=== PATIENT | male | born 1960 | race Caucasian/White ===

== ENCOUNTER 2017-04-04 18:33 | Observation (INO) ==
[2017-04-04] MEDS ORDERED: Aspirin 81 MG TAB.CHEW PO ONE (18:45)
--- NOTE | 2017-04-04 18:48 | Emergency Department Note ---
Disposition Clinical Impression: Chest pain Qualifiers: Chest pain type: unspecified Qualified Code(s): R07.9 - Chest pain, unspecified Disposition: Admitted As Inpatient Condition: Good Referrals: Dalton Souza MD [Primary Care Provider] - Forms: ED Satisfaction Letter Chest Pain HPI - General Chief Complaint: ED Chest Pain Stated Complaint: chest pain Time Seen by Provider: 04/04/17 18:46 Source: patient Mode of arrival: private vehicle Limitations: no limitations Vital Signs Reviewed: Yes Nursing Notes Reviewed: Yes - History of Present Illness HPI Narrative: 57-year-old male history of hypertension, hyperlipidemia, COPD who presents to the ER with a chief complaint of chest pain. Patient reports he started having chest pain around 45 minutes prior to arrival. States it feels like pressure and a sharp sensation in the center of his chest with radiation into his left arm and left jaw. Reports he had a left heart catheterization roughly 3-4 years ago without stent placement. He took aspirin and one nitroglycerin prior to arrival with some improvement of his pain. He reports he felt dizzy during this time as well. No history of sudden cardiac or early CA in his family. No history of DVT or PE. Denies any recent illness, fever, cough, sore throat, vomiting, diarrhea. No other complaints. 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 Denies: nausea, vomiting, diaphoresis Treatments prior to arrival chest pain: aspirin, nitroglycerin - Related Data On Oral Contraceptives: No Allergies Allergy/AdvReac Type Severity Reaction Status Date / Time acetaminophen [From Vicodin] AdvReac Nausea Verified 04/04/17 18:47 hydrocodone [From Vicodin] AdvReac Nausea Verified 04/04/17 18:47 ibuprofen AdvReac Nausea Verified 04/04/17 18:47 morphine AdvReac Nausea Verified 04/04/17 18:47 All systems ED: reviewed and negative except as stated. Constitutional: Denies: fever Cardiovascular: Reports: chest pain Respiratory: Reports: dyspnea. Denies: cough Gastrointestinal: Denies: abdominal pain, nausea, vomiting, diarrhea Chest Pain PMH - Past Medical History Medical history: Reports: COPD, hyperlipidemia - Social History Smoking Status: Current every day smoker Alcohol use: Reports: none Drug use: Reports: none Physical Exam - General Limitations: no limitations General appearance: alert, in no apparent distress - Head Head exam: atraumatic, normocephalic - Eye Eye exam: Present: normal appearance - ENT ENT exam: normal exam - Neck Neck exam: Present: normal inspection, full ROM - Chest Chest inspection: Present: normal inspection, symmetric chest wall rise. Absent : tenderness - Respiratory Respiratory exam: Present: normal lung sounds bilaterally - Cardiovascular Cardiovascular exam: Present: regular rate, normal rhythm, normal heart sounds - Abdominal Exam Abdominal exam: Present: soft, Non-Tender. Absent: tenderness - Extremities Exam Extremities exam: Present: normal inspection, full ROM - Expanded Upper Extremity Exam Shoulder exam: Present: normal inspection, full ROM Arm exam: Present: normal inspection, full ROM Elbow exam: Present: normal inspection, full ROM Forearm/Wrist exam: Present: normal inspection, full ROM Hand exam: Present: normal inspection, full ROM - Expanded Lower Extremity Exam Hip/Pelvis exam: Present: normal inspection, full ROM Upper leg exam: Present: normal inspection, full ROM Knee exam: Present: normal inspection, full ROM Lower leg exam: Present: normal inspection, full ROM Ankle exam: Present: normal inspection, full ROM Foot/toe exam: Present: normal inspection, full ROM - Neurological Exam Neurological exam: Present: alert, other (GCS 15. Nonfocal.) - Psychiatric Psychiatric exam: Present: normal affect - Skin Skin exam: Present: warm, dry, intact Course Course Narrative: Patient seen and examined. We will obtain an EKG, chest x-ray as well as labs including troponin. Patient given aspirin here as well as sublingual nitroglycerin. He will likely require admission for chest pain rule out. - Reevaluation(s) Reevaluation #1: Discussed results of imaging and labs with the patient. He is agreeable to being admitted. Vital Signs Temperature 98.0 F 04/04/17 18:41 Pulse Rate 70 04/04/17 18:41 Respiratory Rate 16 04/04/17 18:41 Blood Pressure 158/113 04/04/17 18:41 O2 Sat by Pulse Oximetry 99 04/04/17 18:41 Temperature 98.0 F 04/04/17 18:41 Pulse Rate 56 1224/17 19:39 Respiratory Rate 16 04/04/17 19:39 Blood Pressure 135/94 04/04/17 19:39 O2 Sat by Pulse Oximetry 95 04/04/17 19:39 Oxygen Delivery Oxygen Delivery Room Air Chest Pain - MDM Narrative Medical decision making narrative: 57-year-old male presents to the ER due to chest pain. Started just prior to arrival. Reports worse with exertion. He also had dizziness and shortness of breath. Reports a left heart catheterization roughly 3 years ago without stent placement. EKG here demonstrates no acute ischemic findings. Chest x-ray and labs reviewed. Patient given aspirin and sublingual nitroglycerin. He will be admitted to the hospitalist service for chest pain, ACS rule out. - Lab Data Lab results reviewed: Yes I reviewed the patient's lab results. Result diagrams: 04/04/17 18:59 04/04/17 18:59 Lab Results 04/04/17 04/04/17 04/04/17 Range/Units 18:59 18:59 18:59 WBC 7.5 (4.3-11.1) K/mcL RBC 4.87 (4.19-5.50) M/mcL Hgb 14.7 (12.9-16.9) g/dL Hct 43.9 (37.5-50.1) % MCV 90.1 (83.0-100.0) fL MCH 30.2 (28.0-33.3) pg MCHC 33.5 (31.6-35.5) g/dL RDW 13.3 (11.5-14.5) % Plt Count 183 (140-400) K/mcL MPV 10.1 (9.4-12.4) fL Immature Gran % 0.1 (0-4) % Seg Neutrophils % 64.8 % Lymphocytes % 23.1 % Monocytes % 8.6 % Eosinophils % 3.1 % Basophils % 0.3 % Neutrophils # 4.9 (1.6-8.9) K/mcL Lymphocytes # 1.7 (0.6-4.6) K/mcL Monocytes # 0.6 (0.0-1.3) K/mcL Eosinophils # 0.2 (0.0-0.6) K/mcL Basophils # 0.0 (0.0-0.2) K/mcL PT 10.8 (9.4-12.1) Seconds INR 1.0 APTT 29.2 (26.0-36.0) Seconds Sodium (136-145) mEq/L Potassium (3.5-5.1) mEq/L Chloride (98-107) mEq/L Carbon Dioxide (23-29) mEq/L BUN (6-20) mg/dL Creatinine (0.70-1.30) mg/dL Est GFR ( Amer) (> 60) Est GFR (Non-Af Amer) (> 60) BUN/Creatinine Ratio (6-26) Glucose (70-105) mg/dL Calculated Osmolality (280-300) Calcium (8.6-10.3) mg/dL Troponin I (< 0.04) ng/mL B-Natriuretic Peptide 82 (Less than 100) pg/mL 04/04/17 04/04/17 Range/Units 18:59 18:59 WBC (4.3-11.1) K/mcL RBC (4.19-5.50) M/mcL Hgb (12.9-16.9) g/dL Hct (37.5-50.1) % MCV (83.0-100.0) fL MCH (28.0-33.3) pg MCHC (31.6-35.5) g/dL RDW (11.5-14.5) % Plt Count (140-400) K/mcL MPV (9.4-12.4) fL Immature Gran % (0-4) % Seg Neutrophils % % Lymphocytes % % Monocytes % % Eosinophils % % Basophils % % Neutrophils # (1.6-8.9) K/mcL Lymphocytes # (0.6-4.6) K/mcL Monocytes # (0.0-1.3) K/mcL Eosinophils # (0.0-0.6) K/mcL Basophils # (0.0-0.2) K/mcL PT (9.4-12.1) Seconds INR APTT (26.0-36.0) Seconds Sodium 138 (136-145) mEq/L Potassium 4.2 (3.5-5.1) mEq/L Chloride 107 (98-107) mEq/L Carbon Dioxide 27 (23-29) mEq/L BUN 15 (6-20) mg/dL Creatinine 0.92 (0.70-1.30) mg/dL Est GFR ( Amer) > 60 (> 60) Est GFR (Non-Af Amer) > 60 (> 60) BUN/Creatinine Ratio 16 (6-26) Glucose 103 (70-105) mg/dL Calculated Osmolality 287 (280-300) Calcium 8.8 (8.6-10.3) mg/dL Troponin I < 0.03 (< 0.04) ng/mL B-Natriuretic Peptide (Less than 100) pg/mL - Radiology Data Radiology results reviewed: Yes I reviewed the patient's radiology results. Chest X-Ray 04/04/17 18:45 IMPRESSION: No acute process. D/ / Baljit Sanches MD / Baljit Sanches MD Interpreting Provider: Baljit Sanches MD - EKG Data EKG attestation: Yes I reviewed and interpreted this EKG. EKG results narrative: EKG demonstrates sinus rhythm with a rate of 63 bpm. Normal axis. Normal intervals. Normal R-wave progression. Nonspecific ST-T wave changes in leads 3 and [address]VF. No gross ST elevations or depressions. No acute ischemic findings. No significant changes from previous EKG dated 06/27/14. Heart Score - Score History: Moderately Suspicious EKG: Normal Age: 45-65 Risk Factors: 1-2 risk factors Troponin: Less than normal limit HEART Score Total: 3 S.B.A.R. - [email or web address] Situation: Demographics, MOA Background: Presenting Complaint, Relevant PMH, Meds, & Allergies Assessment: Vital Signs, Course and respsone to treatment, Exam Concerns, Patient/Family Expectation, Pertinant Lab Results Recommendation: Barrier(s) to disposition, Recommendation based on pending studies, treatments, or consults S.B.A.RTroy Report Given to: Dr. Rachel Brito Repor Time: 19:53
[2017-04-04] MEDS: Nitroglycerin 0.4 MG TAB.SUBL SL ONE ×2 (18:54→19:15)
[2017-04-04 19:11] LABS: Basophils % 0.3 %; Eosinophils # 0.2 K/mcL (0.0-0.6); Eosinophils % 3.1 %; Hematocrit 43.9 % (37.5-50.1); Hemoglobin 14.7 g/dL (12.9-16.9); Immature Granulocytes % 0.1 % (0-4); Lymphocytes # 1.7 K/mcL (0.6-4.6); Lymphocytes % 23.1 %; Mean Corpuscular HGB Conc 33.5 g/dL (31.6-35.5); Mean Corpuscular Hemoglobin 30.2 pg (28.0-33.3); Mean Corpuscular Volume 90.1 fL (83.0-100.0); Mean Platelet Volume 10.1 fL (9.4-12.4); Monocytes # 0.6 K/mcL (0.0-1.3); Monocytes % 8.6 %; Neutrophils # 4.9 K/mcL (1.6-8.9); Platelet Count 183 K/mcL (140-400); Red Blood Count 4.87 M/mcL (4.19-5.50); Red Cell Distribution Width 13.3 % (11.5-14.5); Segmented Neutrophils % 64.8 %
[2017-04-04 19:16] LABS: Prothrombin Time 10.8 Seconds (9.4-12.1)
[2017-04-04 19:19] LABS: Activated Partial Thrombo Time 29.2 Seconds (26.0-36.0)
[2017-04-04 19:28] LABS: BUN/Creatinine Ratio 16 (6-26); Blood Urea Nitrogen 15 mg/dL (6-20); Calcium 8.8 mg/dL (8.6-10.3); Carbon Dioxide 27 mEq/L (23-29); Chloride 107 mEq/L (98-107); Glucose 103 mg/dL (70-105); Osmolality,Calculated 287 (280-300); Potassium 4.2 mEq/L (3.5-5.1); Sodium 138 mEq/L (136-145); eGFR For African Americans > 60 (> 60); eGFR For Non-African Americans > 60 (> 60)
[2017-04-04] MEDS ORDERED: *HR* OxyCODONE/APAP 10/325 TABLET PO ONE (19:41)
--- NOTE | 2017-04-04 19:41 | Emergency Department Note ---
START Narrative - START START: I examined this patient and my medical decision-making was reviewed with the Resident Physician. I agree with the documented findings, disposition and treatment plan as described except to the extent set forth below. 57 year old with mutliple risk factors for ACS presens to the ED with complaints of midsternal rai pain and diaphoresis with exertional dyspnea. Valerio has a neg trop although he is moderately suspsicos for HAKEEM, we willl admit to medicince. ASA/nitro for therpay
[2017-04-04] MEDS ORDERED: Naloxone 0.4 MG/ML INJ IVP PRN (21:24)
[2017-04-04] MEDS ORDERED: Ondansetron 4 MG/2 ML VIAL IVP PRN (21:24)
--- NOTE | 2017-04-04 21:45 | Internal Med History&Physical ---
Date of Encounter: 04/04/17 Time of Encounter: 21:00 Assessment and Plan (1) Chest pain Current visit: Yes Status: Acute Acute chest pain that pt. reports occurred this evening while shopping. Pt. states that this has occurred before but it has been quite a while. Pt. has hx of angioplasty w/o stent placement 3-4 years ago. Pt. describes pain as centralized in chest, sharp and stabbing, and radiating to his left arm and neck. Reports SOB, weakness, and diaphoresis w/CP. No recent cardiac work-up. Initial troponin WNL. Will trend x2. Echocardiogram ordered. Pt. to be NPO tomorrow night for a.m. nuclear pharm stress test if troponins remain negative. Lipitor 80 mg NOW. Continue aspirin therapy. Continue pts. lisinopril HCTZ. Nitroglycerin SL PRN. I discussed pt. w/Dr. Ramos who is agreement w/plan of care. Pt. is at high risk for cardiac event based on current sx, hx, and risk factors of HTN, HLD, and current tobacco abuse. Inpatient. Qualifiers: Chest pain type: other chest pain Qualified Code(s): R07.89 - Other chest pain; R07.8 - Other chest pain (2) SOB (shortness of breath) Current visit: Yes Status: Acute Acute SOB reported w/chest pain. Pt. states he is no longer SOB at present time. Pt. also has chronic hx of COPD and tobacco abuse, smoking 1 PPD. Denies need for cough medication or continuous O2. Supplemental O2 and SpO2 monitoring PRN. Falls/safety precautions. (3) Unsteadiness on feet Current visit: Yes Status: Acute Acute unsteadiness w/ambulation. Pt. reports it does not happen all the time, but he also has bilateral pain in LEs d/t previous fxs. Falls/safety precautions. PT/OT consults ordered to assess for ambulation strength, safety, and stability. (4) HTN (hypertension) Current visit: Yes Status: Chronic Hx of chronic HTN. Monitor pt. and VS. Continue pts. lisinopril HCTZ. Qualifiers: Hypertension type: essential hypertension Qualified Code(s): I10 - Essential (primary) hypertension (5) HLD (hyperlipidemia) Current visit: Yes Status: Chronic Hx of chronic HLD. Lipid panel in a.m. labs. Lipitor 80 mg NOW d/t CP. Will continue pts Lipitor 40 mg HS tomorrow. Qualifiers: Hyperlipidemia type: pure hypercholesterolemia Qualified Code(s): E78.00 - Pure hypercholesterolemia, unspecified; E78.0 - Pure hypercholesterolemia (6) COPD (chronic obstructive pulmonary disease) Current visit: Yes Status: Chronic Hx of chronic COPD. Stable. Pt. reports he currently smokes 1 PPD. Pt. has mild cough on exam but denies need for cough medication or O2. Supplemental O2 and SpO2 monitoring PRN. Qualifiers: COPD type: unspecified COPD Qualified Code(s): J44.9 - Chronic obstructive pulmonary disease, unspecified (7) GERD (gastroesophageal reflux disease) Current visit: Yes Status: Chronic Hx of chronic GERD. IVP Zofran 4 mg Q8 for N/V. Continue pts. Ranitidine 150 mg twice a day. Qualifiers: Esophagitis presence: esophagitis presence not specified Qualified Code(s) : K21.9 - Gastro-esophageal reflux disease without esophagitis (8) DVT prophylaxis Current visit: Yes Status: Acute Bilateral SCDs on LEs for DVT prophylaxis d/t pts. report of not liking needle sticks. Internal Medicine - H&P: HPI Chief complaint: Chest pain Admitted From: Emergency Dept Plans for Post Hospital Care: Home History of present illness: Mr. Garcia is a 57 year old male with medical hx of COPD, HTN, HLD, and current tobacco abuse presents from the ED with chief complaint of chest pain that started this evening and presented as sharp and stabbing pain in the center of his chest with radiation to his left arm and neck. Patient reports he took one nitroglycerin and an aspirin which alleviated the pain somewhat. Patient reports he was short of breath, diaphoretic, and weak. He also states this is occurred before but not for some time. He denies recent illness, nausea , vomiting, diarrhea, constipation, fever, chills, changes in vision, headache, abdominal pain, numbness, tingling, pre-syncope, or syncope. Past Med Surg Social Fam HX - Past Medical History Source: patient, old records reviewed Medical history: COPD, hyperlipidemia, hypertension - Past Surgical History Surgical History: angioplasty/stent (3-4 years ago w/o stent placement), orthopedic, other - Social History Smoking Status: Current every day smoker Packs per day: 1 PPD Alcohol use: none Drug use: none Current living situation: Home Activity Level: Independent ambulation Recent Out of Country Travel Within the Last 8 Weeks: No Exposure or Possible Exposure to Illness During Travel: No - Family History Father History Unknown: Yes Race: Family Member Ethnicity: Non- Mother Race: Family Member Ethnicity: Non- Living Status: Age at : 68 Cause of : [place] Hx Family Cardiac Disorders: Yes ([place], CAD) Brother History Unknown: Yes Race: Family Member Ethnicity: Non- Living Status: Still Living Sister History Unknown: Yes Race: Family Member Ethnicity: Non- Living Status: Still Living Internal Medicine - H&P: Meds Aspirin Enteric Coated [Aspirin EC] 81 mg PO DAILY 04/04/17 [History] Atorvastatin [Lipitor] 40 mg PO HS 04/04/17 [History] Lisinopril-HCTZ 20-12.5 [Prinzide 20-12.5] 1 each PO 04/04/17 [History] Oxycodone HCl/Acetaminophen [Percocet 10-325 mg Tablet] 1 each PO PRN PRN [History] Ranitidine HCl [Heartburn Relief] 150 mg PO BID 04/04/17 [History] 3 Allergy/AdvReac Type Severity Reaction Status Date / Time acetaminophen [From Vicodin] AdvReac Nausea Verified 04/04/17 18:47 hydrocodone [From Vicodin] AdvReac Nausea Verified 04/04/17 18:47 ibuprofen AdvReac Nausea Verified 04/04/17 18:47 morphine AdvReac Nausea Verified 04/04/17 18:47 All Systems PM: A 10-system review of systems was performed and is negative for pertinent findings except as documented above in the HPI. - Constitutional Constitutional: as per HPI, weakness, no chills, no fever(s), no night sweats - EENT Eyes: no change in vision, no discharge, no pain, no photophobia Ears: no ear discharge, no ear pain, no tinnitus Nose, mouth and throat: no dysphagia, no nasal discharge, no neck pain, no sore throat - Breasts Breasts: as per HPI - Cardiovascular Cardiovascular ROS IM: as per HPI, chest pain, diaphoresis, dyspnea, dyspnea on exertion, no lightheadedness, no palpitations, no syncope - Respiratory Respiratory: as per HPI, cough, dyspnea, dyspnea on exertion, no wheezing, no excessive phlegm production - Gastrointestinal Gastrointestinal: no abdominal pain, no diarrhea, no hematemesis, no hematochezia, no melena, no nausea, no vomiting - Genitourinary Genitourinary ROS male: as per HPI - Musculoskeletal Musculoskeletal ROS IM: back pain, other (Pain in LEs from previous fxs), no numbness, no tingling - Integumentary Integumentary IM: no rash, no unusual bruising - Neurological Neurological ROS: as per HPI, dizziness (Unsteadiness w/ambulation), no confusion, no convulsions, no focal weakness, no numbness, no tingling, no tremor(s) - Psychiatric Psychiatric: as per HPI - Endocrine Endocrine IM: as per HPI - Hematologic/Lymphatic Hematologic/Lymphatic: no easy bruising - Allergic/Immunologic Allergic/Immunologic: as per HPI - Constitutional Vitals: Temp Pulse Resp BP Pulse Ox 97.6 F 63 16 155/101 98 04/04/17 20:39 04/04/17 20:39 04/04/17 20:39 04/04/17 20:39 04/04/17 20:39 General appearance: Present: cooperative, A&O X 3, pleasant, obese, answers questions appropriately - Head Head exam: Present: atraumatic, normal inspection, normocephalic - Eye Eye exam: Present: PERRL, conjuntiva pink, sclera anicteric Pupils: Present: PERRL - ENT ENT exam: Present: normal exam, normal external ear exam - Neck Neck exam general surgery: Present: normal inspection, supple, trachea midline. Absent: lymphadenopathy - Respiratory Respiratory exam: Present: CTAB. Absent: accessory muscle use, rales, rhonchi, wheezes - Cardiovascular Cardiovascular exam: Present: RRR, +S1, +S2. Absent: diastolic murmur, gallop, rubs, systolic murmur - GI/Abdominal GI/Abdominal exam: Present: normal bowel sounds, soft, no peritoneal signs. Absent: distended, tenderness - Rectal Rectal exam: Present: deferred - Additional comments: exam deferred. - Extremities Exam Extremities exam: Present: warm, radial pulses palpable and symmetrical. Absent : calf tenderness, cyanotic, pedal edema - Back Exam Back exam: Present: normal inspection - Neurological Exam Neurological exam: Present: CN II-XII intact, oriented X3, no focal deficits. Absent: pronater drift, facial droop, speech deficit - Psychiatric Psychiatric exam: Present: normal affect, normal mood - Skin Skin exam: Present: dry, intact Internal Med - H&P Results - Labs CBC & Chem 7: 04/04/17 18:59 04/04/17 18:59 - EKG Data EKG shows normal: sinus rhythm - EKG Data Prior EKG available for review: yes EKG comments: 04/04/17 21:53 EKG dated 06/27/14 shows sinus rhythm with mild diffuse ST elevation-probably early repolarization, otherwise normal ECG. EKG dated 04/04/17 shows sinus rhythm with minimal voltage criteria for LVH, consider normal variant. Borderline ECG.
[2017-04-04] MEDS ORDERED: Nitroglycerin 0.4 MG TAB.SUBL SL PRN (21:58)
[2017-04-04] MEDS: Nicotine 14 MG PATCH.TD24 TD SCH (23:40)
[2017-04-04] MEDS: Famotidine 20 MG TABLET PO SCH (23:40)
[2017-04-05] MEDS: *HR* OxyCODONE/APAP 10/325 TABLET PO PRN ×5 (01:06→23:34)
[2017-04-05 01:07] LABS: Basophils % 0.6 %; Eosinophils # 0.2 K/mcL (0.0-0.6); Eosinophils % 2.8 %; Hematocrit 41.5 % (37.5-50.1); Hemoglobin 13.8 g/dL (12.9-16.9); Immature Granulocytes % 0.1 % (0-4); Lymphocytes # 2.1 K/mcL (0.6-4.6); Lymphocytes % 31.4 %; Mean Corpuscular HGB Conc 33.3 g/dL (31.6-35.5); Mean Corpuscular Hemoglobin 29.6 pg (28.0-33.3); Mean Corpuscular Volume 89.1 fL (83.0-100.0); Monocytes # 0.8 K/mcL (0.0-1.3); Monocytes % 11.5 %; Neutrophils # 3.6 K/mcL (1.6-8.9); Platelet Count 165 K/mcL (140-400); Red Blood Count 4.66 M/mcL (4.19-5.50); Red Cell Distribution Width 13.3 % (11.5-14.5); Segmented Neutrophils % 53.6 %
[2017-04-05 01:15] LABS: Activated Partial Thrombo Time 27.5 Seconds (26.0-36.0)
[2017-04-05 01:33] LABS: Alanine Aminotransferase 26 Units/L (7-52); Albumin 3.6 g/dL (3.5-5.7); Albumin/Globulin Ratio 1.5 (1.1-2.2); Alkaline Phosphatase 60 Units/L (34-104); Aspartate Amino Transferase 21 Units/L (13-39); BUN/Creatinine Ratio 20 (6-26); Bilirubin,Total 0.4 mg/dL (0.3-1.0); Blood Urea Nitrogen 17 mg/dL (6-20); Calcium 8.7 mg/dL (8.6-10.3); Carbon Dioxide 27 mEq/L (23-29); Chloride 111 mEq/L (98-107); Chol/HDL Ratio 2.7 (0-4.9); Cholesterol 148 mg/dL (< 200); Globulin 2.4 g/dL (2.4-3.5); Glucose 100 mg/dL (70-105); HDL Cholesterol 55 mg/dL (40-59); LDL Cholesterol,Calculated 79 mg/dL (0-99); Magnesium 2.4 mg/dL (1.6-2.6); Osmolality,Calculated 294 (280-300); Potassium 4.1 mEq/L (3.5-5.1); Sodium 141 mEq/L (136-145); Triglycerides 68 mg/dL (< 150); eGFR For African Americans > 60 (> 60); eGFR For Non-African Americans > 60 (> 60)
[2017-04-05] MEDS: Aspirin Enteric Coated 81 MG Tablet PO SCH (07:27)
[2017-04-05] MEDS: Famotidine 20 MG TABLET PO SCH ×2 (07:27→19:26)
[2017-04-05] MEDS: Lisinopril-HCTZ 20-12.5mg TABLET PO SCH (07:27)
[2017-04-05] MEDS: Nicotine 14 MG PATCH.TD24 TD SCH (07:28)
[2017-04-05] MEDS ORDERED: Aspirin Enteric Coated 81 MG Tablet PO SCH (09:00)
--- NOTE | 2017-04-05 09:28 | Internal Med Progress Note ---
<Cristiano Solis - Last Filed: 04/05/17 09:25> Date of Encounter: 04/05/17 Time of Encounter: 09:25 - Assessment and plan (1) Unstable angina Current Visit: Yes Status: Acute Assessment and plan: cp while walking, substernal with radiation to left arm, relieved with nitro previous hx of angiplasty 3-4 years ago. current smoker CXR WNL Trop negative x 3 LDL 79, HDL 55 not diabetic hx of HTN Typical chest pain intermediate to high risk plan: echo, stress test asa/bb/statin cardiac tele cardiac diet NPO midnight for am testing remove nicotine patch tonight. (2) HTN (hypertension) Current Visit: Yes Status: Chronic Assessment and plan: controlled. continue lisinopril/HCTZ Qualifiers: Hypertension type: essential hypertension Qualified Code(s): I10 - Essential (primary) hypertension (3) HLD (hyperlipidemia) Current Visit: Yes Status: Chronic Assessment and plan: controlled continue statin Qualifiers: Hyperlipidemia type: pure hypercholesterolemia Qualified Code(s): E78.00 - Pure hypercholesterolemia, unspecified; E78.0 - Pure hypercholesterolemia (4) COPD (chronic obstructive pulmonary disease) Current Visit: Yes Status: Chronic Assessment and plan: not in exacerbation denies cough, sob CXR WNL continue to monitor Qualifiers: COPD type: unspecified COPD Qualified Code(s): J44.9 - Chronic obstructive pulmonary disease, unspecified (5) DVT prophylaxis Current Visit: Yes Status: Acute Assessment and plan: heparin SQ (6) GERD (gastroesophageal reflux disease) Current Visit: Yes Status: Chronic Assessment and plan: controlled continue pepcid. Qualifiers: Esophagitis presence: esophagitis presence not specified Qualified Code(s) : K21.9 - Gastro-esophageal reflux disease without esophagitis - Subjective Interval history: patient admitted for typical chest pain. currently chest pain free. Denies blurry vision, palpitaitons, sob, nausea, abdominal pain, LE swelling. - Constitutional Vitals: Temp Pulse Resp BP Pulse Ox 97.9 F 55 16 145/86 96 04/05/17 06:54 04/05/17 06:54 04/05/17 06:54 04/05/17 06:54 04/05/17 06:54 General appearance: Present: cooperative, A&O X 3, pleasant, obese, answers questions appropriately - Other Additional findings: General: without distress HEENT: Head atraumatic, normocephalic, EOMI, PERRL, neck nontender to palpation , absent lymphadenopathy, Moist Mucous Membranes, Heart: Regular rate and rhythm with no murmur Lungs: Clear to auscultation bilaterally Abdomen: Soft nontender, nondistended positive bowel sounds Skin: warm and dry Extremities: Absent pedal edema, right knee growth (non eryhematous, no discharge, soft) Neuro: Cranial nerves II through XII intact, UE and LE sensation equal bilaterally, UE and LEstrength 5/5, alert oriented 3, Vascular: Pedal and radial pulses 2 out of 4 Internal Medicine: Result - Labs CBC & Chem 7: 04/05/17 01:01 04/05/17 01:01 Labs: Short CBC 04/05/17 Range/Units 01:01 WBC 6.8 (4.3-11.1) K/mcL Hgb 13.8 (12.9-16.9) g/dL Hct 41.5 (37.5-50.1) % Plt Count 165 (140-400) K/mcL Neutrophils # 3.6 (1.6-8.9) K/mcL BMP 04/05/17 01:01 Sodium 141 Potassium 4.1 Chloride 111 H Carbon Dioxide 27 BUN 17 Creatinine 0.86 Glucose 100 Calcium 8.7 Cardiac Enzymes 04/05/17 04/05/17 Range/Units 01:01 06:34 Troponin I < 0.03 < 0.03 (< 0.04) ng/mL Liver Function 04/05/17 Range/Units 01:01 Total Bilirubin 0.4 (0.3-1.0) mg/dL AST 21 (13-39) Units/L ALT 26 (7-52) Units/L Alkaline Phosphatase 60 (34-104) Units/L Albumin 3.6 (3.5-5.7) g/dL - ABG Interpretation ABG results: PT/INR, D-dimer PT 11.0 Seconds (9.4-12.1) 04/05/17 01:01 Consult Discharge Plan - Plan Referrals: Dalton Souza MD [Primary Care Provider] - <Orlin Christy - Last Filed: 04/05/17 09:44> Date of Encounter: 04/05/17 - Constitutional Vitals: Temp Pulse Resp BP Pulse Ox 97.9 F 55 16 145/86 96 04/05/17 06:54 04/05/17 06:54 04/05/17 06:54 04/05/17 06:54 04/05/17 06:54 Internal Medicine: Result - Labs CBC & Chem 7: 04/05/17 01:01 04/05/17 01:01 Labs: Short CBC 04/05/17 Range/Units 01:01 WBC 6.8 (4.3-11.1) K/mcL Hgb 13.8 (12.9-16.9) g/dL Hct 41.5 (37.5-50.1) % Plt Count 165 (140-400) K/mcL Neutrophils # 3.6 (1.6-8.9) K/mcL BMP 04/05/17 01:01 Sodium 141 Potassium 4.1 Chloride 111 H Carbon Dioxide 27 BUN 17 Creatinine 0.86 Glucose 100 Calcium 8.7 Cardiac Enzymes 04/05/17 04/05/17 Range/Units 01:01 06:34 Troponin I < 0.03 < 0.03 (< 0.04) ng/mL Liver Function 04/05/17 Range/Units 01:01 Total Bilirubin 0.4 (0.3-1.0) mg/dL AST 21 (13-39) Units/L ALT 26 (7-52) Units/L Alkaline Phosphatase 60 (34-104) Units/L Albumin 3.6 (3.5-5.7) g/dL - ABG Interpretation ABG results: PT/INR, D-dimer PT 11.0 Seconds (9.4-12.1) 04/05/17 01:01 - Attending Attestation I examined this patient and my medical decision-making was reviewed with the Resident Physician. I agree with the documented findings, disposition and treatment plan as described except to the extent set forth below. I have seen and examined the patient. Patient is a 57-year-old male with past medical history of COPD, hyperlipidemia and hypertension. Patient is a current daily smoker and smokes about one pack of cigarettes daily. Admitted for chest pain. Rule out ACS. Patient states he had a LHC about 3-4 years ago and apparently had angioplasty done. Troponin is within normal limits 3. EKG shows sinus rhythm with no acute ST-T changes. We will continue aspirin and Lipitor at this time. Patient will need echocardiogram and stress test. Patient has been explained about his condition and plan of care in detail. He understood and agreed. No unanswered questions. Status post code. CODE STATUS full code. Heart - S1-S2 positive. Lungs - bilateral good air entry, no wheeze or crackles. Abdomen - soft, nontender. Extremities - PULSES strong and regular, no edema. Neuro - awake and alert, no deficits.
[2017-04-05] MEDS: *HR* Heparin 5,000 UNIT/ML VIAL SQ SCH (18:37)
[2017-04-06] MEDS: *HR* OxyCODONE/APAP 10/325 TABLET PO PRN ×2 (03:39→09:21)
[2017-04-06] MEDS: *HR* Heparin 5,000 UNIT/ML VIAL SQ SCH (06:03)
[2017-04-06] MEDS ORDERED: Regadenoson 0.4 MG/5 ML SYRINGE IVP ONE (06:26)
[2017-04-06] MEDS: Famotidine 20 MG TABLET PO SCH (09:20)
[2017-04-06] MEDS: Nicotine 14 MG PATCH.TD24 TD SCH (09:20)
[2017-04-06] MEDS: Lisinopril-HCTZ 20-12.5mg TABLET PO SCH (09:21)
[2017-04-06] MEDS: Aspirin Enteric Coated 81 MG Tablet PO SCH (09:21)
--- NOTE | 2017-04-06 10:27 | Discharge Summary ---
<Rufus Vieira - Last Filed: 04/06/17 11:09> Date of Encounter: 04/06/17 Time of Encounter: 08:15 - Discharge Diagnosis (1) Chest pain Priority: Primary Status: Acute Qualifiers: Chest pain type: other chest pain Qualified Code(s): R07.89 - Other chest pain; R07.8 - Other chest pain (2) CAD (coronary artery disease) Priority: Secondary Status: Acute Qualifiers: Coronary Disease-Associated Artery/Lesion type: bypass graft [place] vs. transplanted heart: [place] heart Associated angina: with unspecified angina Qualified Code(s): I25.709 - Atherosclerosis of coronary artery bypass graft(s) , unspecified, with unspecified angina pectoris (3) HTN (hypertension) Priority: Secondary Status: Chronic Qualifiers: Hypertension type: essential hypertension Qualified Code(s): I10 - Essential (primary) hypertension (4) HLD (hyperlipidemia) Priority: Secondary Status: Chronic Qualifiers: Hyperlipidemia type: pure hypercholesterolemia Qualified Code(s): E78.00 - Pure hypercholesterolemia, unspecified; E78.0 - Pure hypercholesterolemia (5) Tobacco abuse Priority: Secondary Status: Acute - Discharge Medications Home Medications: Aspirin Enteric Coated [Aspirin EC] 81 mg PO DAILY 04/04/17 [History] Atorvastatin [Lipitor] 40 mg PO HS 04/04/17 [History] Lisinopril-HCTZ 20-12.5 [Prinzide 20-12.5] 1 tab PO DAILY 04/04/17 [History] Oxycodone HCl/Acetaminophen [Percocet 10-325 mg Tablet] 1 each PO Q6H PRN [History] Ranitidine HCl [Heartburn Relief] 150 mg PO BID 04/04/17 [History] Allergies/Adverse Reactions: 3 Allergy/AdvReac Type Severity Reaction Status Date / Time acetaminophen [From Vicodin] AdvReac Nausea Verified 04/04/17 18:47 hydrocodone [From Vicodin] AdvReac Nausea Verified 04/04/17 18:47 ibuprofen AdvReac Nausea Verified 04/04/17 18:47 morphine AdvReac Nausea Verified 04/04/17 18:47 Procedures/tests Complete & Pending: Procedures Performed prior 72 hours Category Date Time Status NM hina perf SPECT multi [NM] Routine Exams 04/04/17 21:37 Taken EV echocardiogram Routine Y 04/05/17 09:15 Completed SP pharm nuclear stress Routine Y 04/06/17 10:00 Completed Date of admission: 04/04/17 20:01 Primary care physician: Dalton Souza MD Consults: 04/04/17 21:29 Consult to Occupational Therapy [CONS] Routine Comment: Evaluate, develop and implement POC Reason for Consult: Pt. reports some dizziness and unsteadiness w/ ambulation. Please assess pt. for ambulation strength, stability, safety, and possible home assistive needs for post-discharge planning. 04/04/17 21:31 Consult to Physical Therapy [CONS] Routine Comment: Evaluate, develop and implement POC Reason for Consult: Pt. reports some dizziness and unsteadiness w/ ambulation. Please assess pt. for ambulation strength, stability, safety, and possible home assistive needs for post-discharge planning. Consult to Rechecker [CONS] Routine Reason for SW Consult: Please assess pt. for possible home needs for post- discharge planning. Discharging clinician: Rufus Vieira Anticipated date of discharge: 04/06/17 - Patient Status Disposition: Home, Self-Care Condition: Good Functional capacity at discharge: independent ambulation Overall status at discharge: patient is back to baseline - Discharge Instructions Instructions: Chest Pain (DC), Chronic Hypertension (DC), Dyspnea (GEN), Angina , Electrocardiogram Technician (GEN) Follow Up With: Dalton Souza MD [Primary Care Provider] - (Follow up as scheduled ) Additional Instructions: Please follow up with your primary care physician within a week. - Diet and Activity Activity: increase activity as tolerated Diet: low fat, low cholesterol, low salt diet Hospital course: Mr. Garcia is a 57 year old male with PMH of CAD (LHC on 05/14/14 found non- obstructive CAD with LVEF 60%, no stent placed), HTN, HLD and tobacco use who presented to [facility] ED with complaint of chest pain. EKG in ED showed no significant ischemic change and initial troponin was negative. Patient received aspirin and nitroglycerin in ED and chest pain was relieved. Patient was admitted on 04/04/17 for chest pain work-up. Patient had negative troponin x3. Echocardiogram on 04/05/17 found LVEF 55-60% and no pulmonary hypertension nor significant valvular dysfunction. Nuclear stress testo n 04/06/17 is negative for ischemic or infarct. Patient had 5/10 chest pain with pharmacologic stress which is a nonspecific finding. Given patient is chest pain-free and remains hemodynamically stable, patient can be discharged home with continuation of home aspirin, Lipitor and lisinopril. Patient declines beta santiago stating that made his blood pressure too low in the past. Smoking cessation counseling was given. Patient is aware of negative health effects from smoking and encouraged to cut down number of cigarettes use. Patient is also instructed to follow up with his PCP Dr. Souza within a week. Patient expressed his understanding and agreement with the discharge plan. All questions were answered. Time spent discussing smoking cessation with patient: 3 to 10 minutes - Time Spent with Patient Total time spent providing and/or coordinating discharge services: Greater than 30 minutes (45 minutes) - Constitutional Vitals: Temp Pulse Resp BP Pulse Ox 97.9 F 95 16 119/78 98 04/06/17 06:45 04/06/17 06:45 04/06/17 06:45 04/06/17 06:45 04/06/17 06:45 General appearance: Present: cooperative, A&O X 3, pleasant, obese, answers questions appropriately - Head Head exam: Present: normal inspection - Eye Eye exam: Present: EOMI, conjuntiva pink, sclera anicteric - Neck Neck exam general surgery: Present: supple, trachea midline - Respiratory Respiratory exam: Present: CTAB. Absent: rales, rhonchi, wheezes - Cardiovascular Cardiovascular exam: Present: RRR, +S1, +S2 - GI/Abdominal GI/Abdominal exam: Present: normal bowel sounds, soft, no peritoneal signs. Absent: tenderness - Extremities Exam Extremities exam: Present: warm. Absent: cyanotic, pedal edema - Neurological Exam Neurological exam: Present: alert, oriented X3, no focal deficits. Absent: facial droop, speech deficit - Skin Skin exam: Present: dry, warm <Natan Guillermo - Last Filed: 04/06/17 18:41> Date of Encounter: 04/06/17 Procedures/tests Complete & Pending: Procedures Performed prior 72 hours Category Date Time Status NM hina perf SPECT multi [NM] Routine Exams 04/04/17 21:37 Taken EV echocardiogram Routine Y 04/05/17 09:15 Completed SP pharm nuclear stress Routine Y 04/06/17 10:00 Completed Date of admission: 04/04/17 20:00 Primary care physician: Dalton Souza MD Consults: 04/04/17 21:29 Consult to Occupational Therapy [CONS] Routine Comment: Evaluate, develop and implement POC Reason for Consult: Pt. reports some dizziness and unsteadiness w/ ambulation. Please assess pt. for ambulation strength, stability, safety, and possible home assistive needs for post-discharge planning. 04/04/17 21:31 Consult to Physical Therapy [CONS] Routine Comment: Evaluate, develop and implement POC Reason for Consult: Pt. reports some dizziness and unsteadiness w/ ambulation. Please assess pt. for ambulation strength, stability, safety, and possible home assistive needs for post-discharge planning. Hospital course: Mr. Garcia is a 57 year old male - Time Spent with Patient Total time spent providing and/or coordinating discharge services: - Constitutional Vitals: Temp Pulse Resp BP Pulse Ox 98.0 F 61 15 153/103 99 04/06/17 11:30 04/06/17 11:30 04/06/17 11:30 04/06/17 11:30 04/06/17 11:30 - Attending Attestation I conducted a face to face diagnostic evaluation of this patient and my medical decision-making was reviewed with the Resident Physician, Dr Rufus Vieira. I agree with the documented findings, disposition and treatment plan as described except to the extent set forth below: On exam the patient is in no acute distress. Heart exam reveals regular S1 and S2 with no murmurs rubs or gallops Plan: Stress test was negative. Patient is medically stable for discharge home. He has a nonobstructive history of coronary artery disease diagnosed by left heart catheter 3 years ago. He will continue with aspirin and nitroglycerin. I have counseled patient extensively on smoking cessation. Natan Guillermo MD
[2017-04-06 11:33] VITALS: BP 153/103
--- NOTE | 2017-04-06 16:45 | Electrocardiograph Report ---
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
== END 2017-04-06 14:10 | disposition home or self-care (01) ==
LOC: EMEROO 18:33 → 3BNU 18:33 → SUATTDRO 20:01 → 3BNU 20:24 → UNDODISIN 04-06 14:10
PROVIDERS: ADMIT Student in an Organized Health Care Education/Training Program; ATTEND Internal Medicine